=== PATIENT | male | born 1950 | race Caucasian/White ===

== ENCOUNTER 2022-05-08 12:10 | Inpatient (IN) | payer MEDICARE, OTHER ==
[~2022-05-08] VITALS: Ht 175.3 cm; Wt 88.5 kg
[~2022-05-08 12:10] MED LIST: ABAC300; AMLO5 PO; ASPI81EC; ATOR40TA PO; ATOR80 PO; Aspir 8181 MG PO; Aspirin EC81 MG; BASAGLAR K100 UNIT/1 SC; EZET10; FURO20 PO; GABAPENTIN; GEMF600; GLIM4; GLIM4 PO; GLIMEPIRIDE; GLIP10ER; Glucophage 850850 MG PO; HUMALOG; HUMALOG KW100 UNIT/1 SC; Humalog100 UNIT/1; INSULANPEN SC; INSULIN; LIPITOR; LISI10; LOSA25 PO; Lasix20 MG PO; Lopressor 25 mg25 MG PO; MELA3 PO; METF850; METO25 PO; METO25ER PO; METOPROLOL; Neurontin300 MG PO; OXYACE5T PO; OXYACE7.5T PO; PROM25 PO; RANI150 PO; THERA-D2000 UNIT PO; UBID100 PO
[2022-05-08 12:46] LABS: BASOPHILS ABSOLUTE AUTO 0.04 K/mm3 (0.00-0.23); BASOPHILS PERCENT AUTO 0 % (0-2); EOSINOPHILS ABSOLUTE AUTO 0.01 K/mm3 (0.00-0.68); EOSINOPHILS PERCENT AUTO 0 % (0-6); Hematocrit 37.3 % (37.0-53.0); Hemoglobin 12.7 g/dL (13.5-17.5); IMMATURE GRAN PERCENT AUTO 1 % (0-1); LYMPHOCYTES ABSOLUTE AUTO 0.91 K/mm3 (0.84-5.20); LYMPHOCYTES PERCENT AUTO 7 % (21-46); MONOCYTES ABSOLUTE AUTO 1.03 K/mm3 (0.16-1.47); MONOCYTES PERCENT AUTO 8 % (4-13); Mean Corpuscular HGB 33.8 pg (26.0-34.0); Mean Corpuscular Volume 99 fL (80-100); Mean Platelet Volume 10.5 fL (9.1-12.4); NEUTROPHILS PERCENT AUTO 85 % (41-73); Platelet Count 246 K/mm3 (150-400); RDW Standard Deviation 54.1 fL (35.1-46.3); Red Blood Cell Count 3.76 M/mm3 (4.30-5.90); White Blood Cell Count 13.59 K/mm3 (4.00-11.30)
[2022-05-08 12:50] LABS: Calcium, Ionized (POC) 1.09 mmol/L (1.10-1.46); Chloride (POC) 105 mmol/L (98-108); Creatinine (POC) 5.8 mg/dL (0.8-1.3); Glucose (ISTAT POC) 211 mg/dL (70-99); Hemoglobin (POC) 11.9 g/dL (13.5-17.5); Potassium (POC) 6.2 mmol/L (3.5-5.5); Sodium (POC) 136 mmol/L (135-148); Total CO2 (POC) 21 mmol/L (21-32)
[2022-05-08 13:08] LABS: Magnesium, Blood 1.9 mg/dL (1.6-2.4)
[2022-05-08 13:09] LABS: Albumin, Blood 3.1 g/dL (3.4-5.0); Albumin/Globulin Ratio 0.7 (0.8-1.8); Bilirubin, Total 0.9 mg/dL (0.1-1.0); Bun/Creatinine Ratio 14.5 (12.0-20.0); Creatinine, Blood 5.39 mg/dL (0.60-1.20); Globulin, Blood 4.5 g/dL (2.2-4.0); Potassium, Blood 6.3 mmol/L (3.5-5.5); Total Protein, Blood 7.6 g/dL (6.4-8.2)
[2022-05-08 14:18] LABS: Calcium, Blood 8.7 mg/dL (8.5-10.1); Creatinine, Blood 5.39 mg/dL (0.60-1.20); Magnesium, Blood 1.9 mg/dL (1.6-2.4); Potassium, Blood 4.8 mmol/L (3.5-5.5)
--- NOTE | 2022-05-08 16:00 | NUR ---
PT ARRIVES TO ICU 10 FROM ER AT 1540 ON NC. 4 PERSON MAX TRANSFER TO BED WITH SLIDER SHEET. PT BECAME SOB. PLACED BACK ON V30 BIPAP 14/ WITH 5L BLEED IN. SPO2 WAS IN THE 80'S BUT RECOVERS AFTER A FEW MINUTES ON THE V30. ATTEMPTING POWERGLIDE FOR MORE IV ACCESS. DIALYSIS IN ROOM SETTING UP NOW. PT IS RESTING COMFORTABLEY WITH SPO2 95%.
--- NOTE | 2022-05-08 19:19 | NUR ---
SUMMARY PT WAS ER ADMIT THIS AFTERNOON. PT HAS BEEN ON BIPAP SINCE ARRIVAL (SEE PREVIOUS NOTE). WHEN OFF BIPAP PT GETS SOB AND SPO2 DROPS TO 80'S. PT GOT DIALYSIS WITH FLUID REMOVAL. DAUGHTER AT BEDSIDE.
[2022-05-08] MEDS ORDERED: ALLO100 PO (19:35)
[2022-05-08] MEDS ORDERED: INSULIN GL100 UNIT/4 SC (19:39)
[2022-05-08] MEDS ORDERED: Calcium Carbon500 MG PO (19:40)
[2022-05-08] MEDS ORDERED: SODBIC650 PO (19:41)
[2022-05-08] MEDS ORDERED: AMLO10 PO (19:41)
[2022-05-08] MEDS ORDERED: TORSE20 PO (19:42)
[2022-05-08] MEDS ORDERED: HYDRA25 PO (19:43)
[2022-05-08] MEDS ORDERED: CALC.25 PO (19:44)
[2022-05-08] MEDS ORDERED: GABA300 PO (19:44)
--- NOTE | 2022-05-08 20:00 | NUR ---
ASSUMED CARE. DAUGHTER AT BEDSIDE. PT ON BIAPAP V30 WITH SETTINGS 14/10 SATS 90-92%. JUST FINISHED DIALYSIS, 2.6L OFF. BP SOFT. FIRST TIME HE HAS HAD DIALYSIS. STATES HE HAS TO USE THE COMMODE AND INSISTED ON GETTTING UP. 2 PERSON ASSIST, PATIENT VERY SPASMATIC MOVEMENTS, UNSTEADY AND SHAKY. HE STATED HE DID NOT EXPECT TO FEEL THAT WEAK. EDUCATION PROVIDED ON SIDE EFFECTS OF DISALYSIS. DONG FISTULA WRAPPED. LS COARSE, WET. COUGH MOIST, PRODUCTIVE THIN CLEAR. WAS ABLE TO PLACE ON 15 HI-FLOW AND HELD WHILE ON COMMODE BUT BECAME VERY DYSPENIC AND HAD TO BE PLACED BACK ON BIPAP. ASKING FOR FOOD STATES HE HAS NOT ATE FOR 24 HOURS OR MORE. WILL CALL . MEDMiguel UPDATED. EDEMA NOTED TO BLE. CALL LIGHT IS IN REACH.
--- NOTE | 2022-05-08 21:30 | NUR ---
PLACED ON HI-FLOW 15L WHILE EATING. TOLERATED WELL. MAINTAINED 94%. SAT UP FOR SHORT PERIODS BEFORE GETTING TIRED AND LAYING DOWN, CURRENTLY STILL ON HIGHFLOW CANNULA. ATE 75% OF MEAL.
--- NOTE | 2022-05-08 22:51 | NUR ---
PLACED BACK ON BIPAP DUE TO DROP IN SATS TO 86% WHILE SLEEPING. HAD TO INCREASE BLEED IN O2 TO 7 LITERS TO MAINTAIN SATS GREATER THAN 88%.
--- NOTE | 2022-05-09 | NUR ---
PT DESATING AGAIN ON BIPAP, RT CALLED. DISCUSSED PLACEMENT ON AIRVO. AIRVO SETTINGS ARE 40% WITH 92% SATS. DISCUSSED WITH THE PATIENT ABOUT THE AMOUNT OF FLUIDS HE IS TAKING IN TO PREVENT FURTHER FLUID OVERLOAD. HE AGREED TO MAKE WATER LAST.
[2022-05-09 02:13] LABS: Anti-Xa UFH, PHA Monitoring <0.10 IU/mL; International Normalized Ratio 1.32; Prothrombin Time Results 13.6 Sec (9.7-11.5)
[2022-05-09 04:15] LABS: BASOPHILS ABSOLUTE AUTO 0.03 K/mm3 (0.00-0.23); BASOPHILS PERCENT AUTO 0 % (0-2); EOSINOPHILS PERCENT AUTO 0 % (0-6); Hematocrit 32.7 % (37.0-53.0); Hemoglobin 11.1 g/dL (13.5-17.5); IMMATURE GRAN ABSOLUTE AUTO 0.08 K/mm3 (0.00-0.10); IMMATURE GRAN PERCENT AUTO 1 % (0-1); LYMPHOCYTES ABSOLUTE AUTO 1.52 K/mm3 (0.84-5.20); LYMPHOCYTES PERCENT AUTO 12 % (21-46); MONOCYTES ABSOLUTE AUTO 1.19 K/mm3 (0.16-1.47); MONOCYTES PERCENT AUTO 9 % (4-13); Mean Corpuscular HGB 33.1 pg (26.0-34.0); Mean Corpuscular HGB Conc 33.9 g/dL (31.5-36.5); Mean Corpuscular Volume 98 fL (80-100); Mean Platelet Volume 10.8 fL (9.1-12.4); NEUTROPHILS ABSOLUTE AUTO 9.96 K/mm3 (1.96-9.15); NEUTROPHILS PERCENT AUTO 78 % (41-73); Platelet Count 205 K/mm3 (150-400); RDW Coefficient Variation 15.2 % (11.7-14.2); Red Blood Cell Count 3.35 M/mm3 (4.30-5.90); White Blood Cell Count 12.78 K/mm3 (4.00-11.30)
[2022-05-09 04:57] LABS: Percent Saturation 18.9 % (20.0-50.0)
[2022-05-09 05:05] LABS: Albumin, Blood 2.6 g/dL (3.4-5.0); Albumin/Globulin Ratio 0.7 (0.8-1.8); Bilirubin, Total 0.9 mg/dL (0.1-1.0); Bun/Creatinine Ratio 13.8 (12.0-20.0); Calcium, Blood 8.3 mg/dL (8.5-10.1); Creatinine, Blood 6.4 mg/dL (0.60-1.20); Globulin, Blood 3.8 g/dL (2.2-4.0); Total Protein, Blood 6.4 g/dL (6.4-8.2)
--- NOTE | 2022-05-09 05:12 | NUR ---
iNFORMED DR. CHARLES OF LAB RESULTS NO ORDERS TO NOTE.
--- NOTE | 2022-05-09 06:41 | NUR ---
SHIFT SUMMARY: PT AOX3, HAS HAD MINIMAL COMPLAINTS. RECEIVED DYALSIS LAST NIGHT AND HAD 2.6L REMOVED. DENIES ANY PAIN OR DISCOMFORT. WAS ON BIPAP BUT HAD TO BE ADVANCED TO AIRVO OF 40 FIO2. AT WHICH HE HAS REMAINED >90%. LS COARSE, WET, WITH EXPIRTORY WHEEZES. WIDE QRS COMPLEX [place] THE [place] [id number], THIS WAS CALLED INTO DR. CHARLES WITH NOTED RYTHEM READINGS OF ELEVATION IN T WAVE. HEPARIN WAS STARTED AT 15 UNITS/KG/HR. HIS RYTHEM CONTINUES TO GET WORSE BUT HE REMAINS ASYMPTOMATIC. CALLED DR. CHARLES AGAIN WITH CONTINUED WORSENING OF RYTHEM, ORDERS RECEIVED. GAVE 10 UNITS OF INSULIN, CALCIUM GLUCONATE, AND D50 THIS AM. STILL NO CHANGES AND HE REMAINS ASYMTOMATIC. BP CURRENTLY HOLDING BUT IS ON SOFT SIDE. HE IS SUPPOSE TO HAVE ECHO THIS AM. ABD DISTENDED SMALL BM NOTED, SCANT URINE OUTPUT. HE IS SUPPOSE TO HAVE DIALYSIS TODAY. BRUISE ON ABDOMIN. COVID SWAB SENT TO LAB. WILL ORDER EKG TO SEE WHAT IT STATES.
[2022-05-09 07:20] LABS: Influenza A, PCR NEGATIVE (NEGATIVE); Influenza B, PCR NEGATIVE (NEGATIVE); Resp Syncytial Virus, PCR NEGATIVE (NEGATIVE); SARS-Cov-2 (COVID-19) PCR, MMC NEGATIVE (NEGATIVE)
--- NOTE | 2022-05-09 08:24 | NUR ---
ECHO BEING DONE NOW. CALLED DR. MARIE ABOUT INCREASING TROPONIN. PT IS ON HEPARIN GTT. NO COMPLAINTS OF CP.
--- NOTE | 2022-05-09 09:38 | NUR ---
PT HAD EPISODE OF DESATTING INTO THE 80'S. LS CRACKLES T/O. PLACED ON V60 BIPAP, NOTED RHYTHM CHANGE ON THE MONITOR, RENAL PANEL DRAWN, DR. MARIE AT BEDSIDE. DENIES CP OR PRESSURE. DIALYSIS HERE TO START. XRAY HERE NOW. SPO2 AND WOB BETTER ON BIPAP.
[2022-05-09 10:11] LABS: Albumin, Blood 2.7 g/dL (3.4-5.0); Anion Gap 12 mmol/L (6-16); Blood Urea Nitrogen 91 mg/dL (8-24); Bun/Creatinine Ratio 13.2 (12.0-20.0); CO2, Blood 25 mmol/L (21-32); Calcium, Blood 8.8 mg/dL (8.5-10.1); Chloride, Blood 100 mmol/L (98-108); Creatinine, Blood 6.87 mg/dL (0.60-1.20); Glomerular Filtration Rate 8 (60-); Glucose, Blood 148 mg/dL (70-99); Phosphorus, Blood 4.7 mg/dL (2.5-4.9); Potassium, Blood 4.5 mmol/L (3.5-5.5); Sodium, Blood 137 mmol/L (136-145)
--- NOTE | 2022-05-09 12:08 | NUR ---
PT WAS ON DIALYSIS STILL ON BIPAP WHEN HE SUDDENLY STARTED VOMITING WITHOUT WARNING. BIPAP REMOVED QUICKLY AND PT PLACED BACK ON AIRVO. PT STATES HE HAD A VERY QUICK SHARP CP BEFORE HE VOMITED. DIALYSIS BACKED OFF ON REMOVING FLUID FOR A LITTLE BIT AND PT SEEMED TO BE RECOVERING WHEN HE HAD ANOTHER SUDDEN SHARP CP WITH VOMITING. DR. MARIE AND DR. NÚÑEZ BOTH MADE AWARE OF EPISODES AND HR INCREASING WITH IRREGULAR RHYTHM. DIALYSIS WAS TERMINATED. PT IS SITTING UP ABLE TO ANSWER QUESTIONS. DAUGHTER AT BEDSIDE.
--- NOTE | 2022-05-09 12:23 | NUR ---
DIALYSIS PT RAN ON DIALYSIS 1 HOUR AND 59 MIN. HE WAS WEARING HIS BPAP WHEN HE STARTED TO VOMITE. HE ASPIRATED THE EMESIS. HE'S O2 SATS STARTED TO DROP. HIS HEART RATE WENT UP OVER 100. HE REMAINED NASEATED AND VOMITED A FEW MORE TIME. THE ICU RNS TRIED SEVERAL THINGS TO LOWER HIS RATE AND STOP THE DESATING. FINALLY THE CHARGE NURSE ASKED ME TO DC TX AND SEE IF HE WOULD IMPROVE. I RETURNED HIS BLOOD AND EVERYTHING IMPROVED. CALLED AND TOLD DR DOUGLAS WHAT HAPPENED.
--- NOTE | 2022-05-09 15:00 | NUR ---
AT 1430 PT VOMITING. PT DENIES CP OR PRESSURE WITH THIS EPISODE OF VOMITING. WAS ON BIPAP WITH NASAL MASK. DR. MARIE AND DR. NÚÑEZ AT BEDSIDE. BOTH MD'S AGREE THAT PT WILL NEED INTUBATED FOR AIRWAY PROTECTION. DAUGHTER AT BEDSIDE. BOTH PT AND DAUGHTER EDUCATED ABOUT PLAN OF CARE AND BOTH OK WITH PROCEDING. SPO2 87%. REGLAN GIVEN FOR NAUSEA. DR. MARIE WILL INTUBATE.
[2022-05-09 16:57] LABS: BASOPHILS ABSOLUTE AUTO 0.05 K/mm3 (0.00-0.23); BASOPHILS PERCENT AUTO 0 % (0-2); EOSINOPHILS ABSOLUTE AUTO 0.01 K/mm3 (0.00-0.68); EOSINOPHILS PERCENT AUTO 0 % (0-6); Hematocrit 34.8 % (37.0-53.0); Hemoglobin 11.6 g/dL (13.5-17.5); IMMATURE GRAN ABSOLUTE AUTO 0.15 K/mm3 (0.00-0.10); IMMATURE GRAN PERCENT AUTO 1 % (0-1); LYMPHOCYTES ABSOLUTE AUTO 3.13 K/mm3 (0.84-5.20); LYMPHOCYTES PERCENT AUTO 16 % (21-46); MONOCYTES ABSOLUTE AUTO 1.04 K/mm3 (0.16-1.47); MONOCYTES PERCENT AUTO 6 % (4-13); Mean Corpuscular HGB 33.8 pg (26.0-34.0); Mean Corpuscular HGB Conc 33.3 g/dL (31.5-36.5); Mean Corpuscular Volume 102 fL (80-100); Mean Platelet Volume 10.7 fL (9.1-12.4); NEUTROPHILS PERCENT AUTO 77 % (41-73); NRBC ABSOLUTE 0.05 K/mm3 (0.00-0.02); NRBC Auto 0.3 /100 WBC (0.0-0.2); Platelet Count 226 K/mm3 (150-400); RDW Coefficient Variation 15.2 % (11.7-14.2); RDW Standard Deviation 56.2 fL (35.1-46.3); Red Blood Cell Count 3.43 M/mm3 (4.30-5.90); White Blood Cell Count 19.08 K/mm3 (4.00-11.30)
--- NOTE | 2022-05-09 17:00 | NUR ---
SUMMARY OF RSI AND CODE: DR. MARIE AT BEDSIDE @ 1525 PREP FOR RSI. PT MED WITH ETOMIDATE 10 MG IVP X 1 @ 1526. PT MED WITH ROCURONIUM 80 MG IVP X 1 @ 1527. SBP 60'S NS 500 CC BOLUS INITIATED @ 1528. NEOSYNEPHRINE 100 MCG IVP X 1 GIVEN @ 1530 AND 1532-MAP TRENDING IN THE 40'S. 1534- SBP 70'S AND MAP 50'S-NEOSYNEPHRINE 200 MCG IVP GIVEN. 1535- HR 40-50'S ATROPINE 0.5 MG GIVEN. 1536-HR CONTINUES 50'S ATROPINE 0.5 MG IVP X 1 GIVEN. LEVOPHED DRIP INITIATED @ 15 MCG/MIN @ 1538. 1540 HR 30'S, NO PULSE-CPR INITIATED AND EPI 1 MG IVP GIVEN. 1542-RHYTHM CHECK-0 PULSE. CPR RESUMED. 1545-EPI 1 MG IVP GIVEN. 1546-PULSE CHECK 0 PULSE RHYTHM CHECK SHOWS VTACH-DEFIB X 1 120J. LEVOPHED DRIP TITRATED UP TO 30 MCG/MIN. 1547- PULSE CHECK+ HR 150'S. BP 184/55 LEVOPHED DRIP TITRATED DOWN TO 20 MCG/MIN. OGT PLACED @ 1550. RIJ QUAD CENTRAL LINE PLACED BY DR. MARIE AND CXR DONE FOR ETT, OGT, AND CENTRAL LINE PLACEMENT. DR. LANDRY HAS BEEN CONSULTED. DOBUTREX DRIP INITIATED @ 5 MCG/MIN @ 1548.
[2022-05-09 17:13] LABS: Anti-Xa UFH, PHA Monitoring 0.58 IU/mL; International Normalized Ratio 1.4; Prothrombin Time Results 14.4 Sec (9.7-11.5)
[2022-05-09 17:19] LABS: Magnesium, Blood 3.2 mg/dL (1.6-2.4)
[2022-05-09 17:27] LABS: Calcium, Blood 8.5 mg/dL (8.5-10.1); Creatinine, Blood 5.52 mg/dL (0.60-1.20); Potassium, Blood 4.3 mmol/L (3.5-5.5)
[2022-05-09 17:47] LABS: Phosphorus, Blood 8.7 mg/dL (2.5-4.9)
[2022-05-09 17:59] LABS: PCO2 Arterial 47.3 mmHg (35-45); PO2 Arterial 236 mmHg (80-100)
[2022-05-09 18:00] LABS: pH Blood Arterial 7.15 (7.35-7.45)
--- NOTE | 2022-05-09 18:03 | NUR ---
Spiritual care visit connducted. Pt is lying in bed and minimally responsive. Pt's family is bedside. We discuss withdrawing life support, pt's wishes, pt's personality and temperment and his spiritual beliefs. I provide therapeutic listening, gentle world travel counselor and prayer. Family responds well and shows signs of being comforted and clear resolve in medical decision making.
--- NOTE | 2022-05-09 18:36 | NUR ---
SUMMARY PT WAS STARTED ON DIALYSIS THIS AM. WAS INITIALLY ON AIRVO BUT SPO2 DROPPING DOWN TO 80'S. PLACED ON BIPAP. PT BECAME NAUSEATED AND VOMITED WHILE ON BIPAP MASK (SEE NN). DIALYSIS WAS TERMINATED. PT DID OK FOR A FEW HOURS AFTER DIALYSIS WAS TEMINATED BUT THIS AFTERNOON HE BECAME NAUSEATED AGAIN AND STARTED VOMITING. DR. MARIE AND DR. NÚÑEZ AT BEDSIDE. BOTH MD'S AGREED THAT PT SHOULD BE INTUBATED FOR AIRWAY PROTECTION. AFTER PT WAS INTUBATED PT MELL'D DOWN AND ARRESTED. SEE CODE BLUE NOTE. NOW PT IS ON MULTIPLE PRESSORS. SEE FLOWSHEET. DR. LANDRY WAS CONSULTED AND AT BEDSIDE AFTER INTUBATION AND CENTRAL LINE PLACEMENT. MULTIPLE FAMILY MEMBERS AT BEDSIDE. SPIRITUAL CARE AND PALLIATIVE CARE HAS BEEN WITH FAMILY AND PT.
--- NOTE | 2022-05-09 18:47 | NUR ---
pt in icu did not tolerate dislysis well. pt code blue this afternoon. Facilitated assitance with family in understanding prognosis and making decisions for plan of care. Family called in and chaplian pt continue to decline. Made pt dnr will see how he reponds and possible withdrawl of care.
--- NOTE | 2022-05-09 19:09 | NUR ---
PT STARTED BRADYING DOWN AGAIN, EPI, LEVO, AND DOBUTAMINE INCREASED. DAUGHTER AT BEDSIDE VERBALIZED THAT SHE WOULD LIKE PRESSORS TURNED OFF AND TO LET PT PASS. WISHES FOLLOWED AND PT PASSED QUICKLY AND PEACEFULLY WITH FAMILY PRESENT.
--- NOTE | 2022-05-09 19:30 | NUR ---
ASSUMED CARE. FAMILY IS IN ROOM TO SAY FINAL GOOD BYES. FAMILY WAS SENT HOME WITH PATIENT BELONGINGS. FAMILY CHOSE [facility].
--- NOTE | 2022-05-09 20:47 | NUR ---
CALLED DAUGHTER BRITTNEY IN REGARDS TO HEARING AIDS STILL LEFT HERE. SHE STATES SHE WILL COME BY AND PICK THEM UP. HEARING AIDS PLACED IN SPECIMEN CUP WITH NAME ON THEM, ATTACHED FACESHEET.
--- NOTE | 2022-05-09 21:16 | NUR ---
CALLS WERE PLACED TO DR. MCDONALD, DR. NÚÑEZ, AND DR. DOUGLAS INFORMING OF PATIENTS PASSING AND TOD.
--- NOTE | 2022-05-09 21:36 | NUR ---
[facility] CALLED FOR PICK-UP.
[2022-05-11 00:09] LABS: HBSAG SCREEN Negative (Negative); HCV AB <0.1 (0.0-0.9); HEP A AB, IGM Negative (Negative); HEP B CORE AB, IGM Negative (Negative)
== END 2022-05-09 19:07 | DRG 208 ==
LOC: ER 12:10 → ERHOLD 14:07 → ICUW 14:07
PROVIDERS: Emergency Medicine; Internal Medicine; Internal Medicine Nephrology; ADMIT Internal Medicine
PROC: 5A1935Z Respiratory Ventilation, Less than 24 Consecutive Hours (ICD-10-PCS; principal; 2022-05-09)
PROC: 5A1D70Z Performance of Urinary Filtration, Intermittent, Less than 6 Hours Per Day (ICD-10-PCS; 2022-05-09)
PROC: 0BH18EZ Insertion of Endotracheal Airway into Trachea, Via Natural or Artificial Opening Endoscopic (ICD-10-PCS; 2022-05-09)
PROC: 5A12012 Performance of Cardiac Output, Single, Manual (ICD-10-PCS; 2022-05-09)
PROC: 02HV33Z Insertion of Infusion Device into Superior Vena Cava, Percutaneous Approach (ICD-10-PCS; 2022-05-09)
PROC: 3E033XZ Introduction of Vasopressor into Peripheral Vein, Percutaneous Approach (ICD-10-PCS; 2022-05-09)
DX: J96.01 Acute respiratory failure with hypoxia (principal); J18.9 Pneumonia, unspecified organism; I21.4 Non-ST elevation (NSTEMI) myocardial infarction; N18.6 End stage renal disease; R65.11 Systemic inflammatory response syndrome (SIRS) of non-infectious origin with acute organ dysfunction; N17.9 Acute kidney failure, unspecified; I12.0 Hypertensive chronic kidney disease with stage 5 chronic kidney disease or end stage renal disease; Z66 Do not resuscitate; Z51.5 Encounter for palliative care; Z20.822 Contact with and (suspected) exposure to COVID-19; Z78.1 Physical restraint status; I25.10 Atherosclerotic heart disease of native coronary artery without angina pectoris; E87.5 Hyperkalemia; M10.9 Gout, unspecified; R57.0 Cardiogenic shock; E11.22 Type 2 diabetes mellitus with diabetic chronic kidney disease; E78.5 Hyperlipidemia, unspecified; E87.70 Fluid overload, unspecified; Z95.1 Presence of aortocoronary bypass graft; Z90.49 Acquired absence of other specified parts of digestive tract; Z90.89 Acquired absence of other organs; Z88.0 Allergy status to penicillin; Z88.8 Allergy status to other drugs, medicaments and biological substances; Z79.82 Long term (current) use of aspirin; Z79.4 Long term (current) use of insulin; Z79.899 Other long term (current) drug therapy
CPT/HCPCS: 0241U; 31500; 36415; 36556; 36600; 71045; 80047; 80048; 80053; 80069; 80074; 82140; 82306; 82728; 82803; 82947; 83540; 83550; 83605; 83690; 83735; 83880; 83970; 84100; 84484; 85014; 85025; 85520; 85610; 85730; 86317; 93005; 93010; 93306; 94002; 94644; 94660; 94664; 94762; 96374; 96375; 96376; 99285-25; A9270; C1751; J0171; J0282; J0456; J0461; J0610; J0696; J1644; J1815; J1940; J2250; J2370; J2405; J2704; J2765; J3010; J3475; J7030; J7050; J7060; J7799